=== PATIENT | female | born 1970 | race Caucasian/White ===

== ENCOUNTER 2023-03-29 23:37 | Inpatient (IN) | payer SELFPAY ==
[2023-03-30 01:42] LABS: #Monocytes 0.6 thou/uL (0.11-0.59); #Neutrophils 16.4 thou/uL (1.40-6.50); %Basophils 0.2 % (0.0-1.0); %Lymphocytes 12.5 % (21.0-51.0); %Monocytes 3.1 % (0.0-10.0); %Neutrophils 83.9 % (42.0-75.0); Hematocrit 42.6 % (36.0-47.0); Hemoglobin 14.1 g/dL (12.0-16.0); Mean Corpuscular HGB CONC 33.1 g/dL (32.0-36.0); Mean Corpuscular Hemoglobin 28.8 pg (27.0-31.0); Mean Corpuscular Volume 86.9 fl (78.0-98.0); Mean Platelet Volume 8.5 fL (7.4-10.4); Platelet Count 504 10x3/uL (130-400); RBC Distribution Width 15.8 % (11.5-14.5); White Blood Cell (WBC) Count 19.5 10x3/uL (4.8-10.8)
[2023-03-30 02:10] LABS: Prothrombin Time 13.7 sec (12.0-14.7)
[2023-03-30 02:11] LABS: PTT 79.5 sec (22.9-36.1)
[2023-03-30 02:17] LABS: Troponin I 0.018 ng/mL (< 0.028)
[2023-03-30 02:21] LABS: Albumin 4.1 g/dL (3.5-5.0)
[2023-03-30 02:22] LABS: Calcium 9.4 mg/dL (7.8-10.44); Chloride 106 mmol/L (98-107); Potassium 4.5 mmol/L (3.5-5.1); Sodium 139 mmol/L (136-145)
[2023-03-30 02:23] LABS: Glucose 143 mg/dL (70-105)
[2023-03-30 02:24] LABS: Globulin 2.4 g/dL (2.4-3.5); Protein, Total 6.5 g/dL (6.0-8.3)
[2023-03-30 02:25] LABS: Anion Gap 17 mmol/L (10-20); Bilirubin, Total 0.2 mg/dL (0.2-1.2); Carbon Dioxide 21 mmol/L (22-29)
[2023-03-30 02:26] LABS: Alkaline Phosphatase 85 U/L (40-110); Calc. Creatinine Clearance 0 mL/min (70-130); Estimated GFR 92
[2023-03-30 02:27] LABS: BUN (Urea Nitrogen) 14 mg/dL (9.8-20.1)
[2023-03-30 02:28] LABS: AST (SGOT) 15 U/L (5-34)
[2023-03-30 02:29] LABS: ALT (SGPT) 20 U/L (8-55); Lipase 92 U/L (8-78); Magnesium 1.6 mg/dL (1.6-2.6)
[2023-03-30] MEDS ORDERED: Ondansetron PF 4 MG/2 ML Vial IVP PRN (04:58)
[2023-03-30] MEDS ORDERED: Ondansetron PF 4 MG/2 ML Vial ONE (05:00)
[2023-03-30] MEDS ORDERED: Sodium Chloride 0.9% 1,000 ML IV SCH ×2 (05:00→05:45)
[2023-03-30] MEDS ORDERED: hydrALAZINE 20 MG/ML VIAL SLOW IVP PRN (05:00)
[2023-03-30] MEDS ORDERED: Labetalol HCl 100 MG/20 ML VIAL SLOW IVP PRN (05:00)
[2023-03-30 05:13] LABS: #Monocytes 1.1 thou/uL (0.11-0.59); #Neutrophils 15.1 thou/uL (1.40-6.50); %Basophils 0.2 % (0.0-1.0); %Lymphocytes 17.9 % (21.0-51.0); %Monocytes 5.6 % (0.0-10.0); %Neutrophils 75.8 % (42.0-75.0); Hematocrit 45.4 % (36.0-47.0); Hemoglobin 14.8 g/dL (12.0-16.0); Mean Corpuscular HGB CONC 32.6 g/dL (32.0-36.0); Mean Corpuscular Hemoglobin 28.7 pg (27.0-31.0); Mean Platelet Volume 8.5 fL (7.4-10.4); Platelet Count 542 10x3/uL (130-400); RBC Distribution Width 15.9 % (11.5-14.5); Red Blood Cell (RBC) Count 5.16 mill/uL (4.20-5.40); White Blood Cell (WBC) Count 19.9 10x3/uL (4.8-10.8)
[2023-03-30 05:25] LABS: Lactic Acid 3.5 mmol/L (0.5-2.2)
[2023-03-30 05:28] LABS: Hemoglobin A1c 5.5 % (4.0-6.0)
[2023-03-30 05:30] LABS: Anion Gap 14 mmol/L (10-20); BUN (Urea Nitrogen) 14 mg/dL (9.8-20.1); Calc. Creatinine Clearance 0 mL/min (70-130); Calcium 9.8 mg/dL (7.8-10.44); Carbon Dioxide 23 mmol/L (22-29); Cardiac Risk 5.5 (Less than 4.5); Chloride 106 mmol/L (98-107); Cholesterol 232 mg/dl (< 200 Desired); Estimated GFR 95; Glucose 140 mg/dL (70-105); HDL Cholesterol 42 mg/dL (>60 Neg Risk); LDL Cholesterol, Calculated 144 mg/dL; Lipase 66 U/L (8-78); Potassium 3.8 mmol/L (3.5-5.1); Sodium 139 mmol/L (136-145); Triglycerides 231 mg/dL (Less than 150)
[2023-03-30] MEDS ORDERED: Piperacillin/Tazobactam 3.375 GM in Sodium Chloride 0.9% 100 ML IVPB SCH (05:30)
[2023-03-30] MEDS ORDERED: Vancomycin (BATCH) 1.75 GM in Premix 1 BAG IVPB SCH (06:00)
[2023-03-30 06:11] VITALS: BMI 28.2
[2023-03-30] MEDS ORDERED: Piperacillin/Tazobactam 3.375 GM VIAL ONE ×4 (06:13→11:52)
[2023-03-30] MEDS ORDERED: Heparin 10,000 UNITS/ 10 ML VIAL SLOW IVP SCH (08:15)
[2023-03-30 09:15] LABS: Lactic Acid 1.5 mmol/L (0.5-2.2)
[2023-03-30] MEDS ORDERED: Aspirin 81 mg Enteric Coated Tablet ONE (11:16)
[2023-03-30] MEDS: Aspirin 81 mg Enteric Coated Tablet PO SCH (11:56)
[2023-03-30] MEDS: Piperacillin/Tazobactam 3.375 GM in Sodium Chloride 0.9% 100 ML IVPB SCH ×2 (11:56→18:25)
[2023-03-30] MEDS ORDERED: Potassium Bicarbonate/Cit Ac 20 MEQ TAB ONE (13:54)
[2023-03-30] MEDS ORDERED: Heparin 25,000 units/D5W 500 ML ONE (14:46)
[2023-03-30] MEDS ORDERED: Vancomycin (BATCH) 1.25 GM in Premix 1 BAG IVPB SCH (18:00)
[2023-03-30] MEDS: Acetaminophen 325 MG TAB PO PRN (18:26)
[2023-03-30 19:27] LABS: PTT 136.2 sec (22.9-36.1)
[2023-03-30] MEDS ORDERED: Atorvastatin Calcium 40 MG TAB PO SCH (21:00)
[2023-03-30] MEDS: Vancomycin (BATCH) 1.25 GM in Premix 1 BAG IVPB SCH (22:04)
[2023-03-31] MEDS: Piperacillin/Tazobactam 3.375 GM in Sodium Chloride 0.9% 100 ML IVPB SCH ×3 (02:14→17:37)
[2023-03-31 05:14] LABS: #Basophils 0.1 thou/uL (0.0-0.2); #Eosinphils 0.1 thou/uL (0.0-0.7); #Monocytes 1.5 thou/uL (0.11-0.59); #Neutrophils 7.7 thou/uL (1.40-6.50); %Basophils 0.5 % (0.0-1.0); %Eosinophils 0.4 % (0.0-10.0); %Lymphocytes 38.1 % (21.0-51.0); %Monocytes 10.1 % (0.0-10.0); %Neutrophils 50.8 % (42.0-75.0); Hematocrit 37.5 % (36.0-47.0); Hemoglobin 12.3 g/dL (12.0-16.0); Mean Corpuscular HGB CONC 32.8 g/dL (32.0-36.0); Mean Corpuscular Hemoglobin 28.3 pg (27.0-31.0); Mean Corpuscular Volume 86.4 fl (78.0-98.0); Mean Platelet Volume 8.9 fL (7.4-10.4); Platelet Count 446 10x3/uL (130-400); RBC Distribution Width 16.1 % (11.5-14.5); Red Blood Cell (RBC) Count 4.34 mill/uL (4.20-5.40); White Blood Cell (WBC) Count 15.2 10x3/uL (4.8-10.8)
[2023-03-31 05:41] LABS: Anion Gap 14 mmol/L (10-20); BUN (Urea Nitrogen) 9 mg/dL (9.8-20.1); Calc. Creatinine Clearance 119 mL/min (70-130); Calcium 9.3 mg/dL (7.8-10.44); Carbon Dioxide 22 mmol/L (22-29); Chloride 108 mmol/L (98-107); Estimated GFR 105; Glucose 101 mg/dL (70-105); Potassium 3.5 mmol/L (3.5-5.1); Sodium 140 mmol/L (136-145)
[2023-03-31] MEDS: Aspirin 81 mg Enteric Coated Tablet PO SCH (08:34)
[2023-03-31] MEDS: Acetaminophen 325 MG TAB PO PRN ×2 (08:34→17:36)
[2023-03-31] MEDS: Heparin 25,000 units/D5W 500 ML IVPB SCH ×2 (08:35→23:30)
[2023-03-31] MEDS: Vancomycin (BATCH) 1.25 GM in Premix 1 BAG IVPB SCH ×2 (10:27→22:01)
[2023-03-31] MEDS: Atorvastatin Calcium 40 MG TAB PO SCH (20:43)
[2023-04-01] MEDS: Piperacillin/Tazobactam 3.375 GM in Sodium Chloride 0.9% 100 ML IVPB SCH ×3 (02:32→18:40)
[2023-04-01] MEDS: Acetaminophen 325 MG TAB PO PRN (02:37)
[2023-04-01 05:00] LABS: #Basophils 0.1 thou/uL (0.0-0.2); #Eosinphils 0.1 thou/uL (0.0-0.7); #Monocytes 1.5 thou/uL (0.11-0.59); #Neutrophils 6.6 thou/uL (1.40-6.50); %Basophils 0.5 % (0.0-1.0); %Eosinophils 0.8 % (0.0-10.0); %Lymphocytes 36.7 % (21.0-51.0); %Monocytes 11.1 % (0.0-10.0); %Neutrophils 50.7 % (42.0-75.0); Hemoglobin 12.1 g/dL (12.0-16.0); Mean Corpuscular HGB CONC 32.7 g/dL (32.0-36.0); Mean Corpuscular Hemoglobin 28.5 pg (27.0-31.0); Mean Corpuscular Volume 87.1 fl (78.0-98.0); Mean Platelet Volume 8.9 fL (7.4-10.4); Platelet Count 404 10x3/uL (130-400); RBC Distribution Width 15.8 % (11.5-14.5); Red Blood Cell (RBC) Count 4.25 mill/uL (4.20-5.40)
[2023-04-01 05:30] LABS: Anion Gap 12 mmol/L (10-20); BUN (Urea Nitrogen) 5 mg/dL (9.8-20.1); Calc. Creatinine Clearance 116 mL/min (70-130); Carbon Dioxide 22 mmol/L (22-29); Chloride 108 mmol/L (98-107); Estimated GFR 101; Glucose 102 mg/dL (70-105); Potassium 3.4 mmol/L (3.5-5.1); Sodium 139 mmol/L (136-145)
[2023-04-01] MEDS: Vancomycin (BATCH) 1.25 GM in Premix 1 BAG IVPB SCH ×3 (06:24→21:30)
[2023-04-01] MEDS ORDERED: Lidocaine 1% MPF 2 ML VIAL ONE (07:39)
[2023-04-01] MEDS ORDERED: Protamine Sulfate 50 MG/5 ML VIAL ONE (07:40)
[2023-04-01] MEDS ORDERED: Dexamethasone 4 mg/ml Vial ONE (07:40)
[2023-04-01] MEDS ORDERED: Heparin 5,000 UNITS/ML VIAL ONE (07:40)
[2023-04-01] MEDS ORDERED: EPINEPHrine 1 MG/ML AMP ONE (07:40)
[2023-04-01] MEDS ORDERED: Bupivacaine PF 0.5% 30 ML VIAL ONE (07:40)
[2023-04-01] MEDS ORDERED: fentaNYL PF 100 MCG/2 ML SYRINGE ONE (07:48)
[2023-04-01] MEDS ORDERED: Midazolam HCl 2 mg/2 ml Vial ONE (08:06)
[2023-04-01] MEDS ORDERED: Glycopyrrolate 0.2 MG/ML 5 ML SYRINGE ONE (08:30)
[2023-04-01] MEDS ORDERED: Ondansetron PF 4 MG/2 ML Vial ONE (08:30)
[2023-04-01] MEDS ORDERED: Lidocaine 1% PF 5 ML VIAL ONE (08:30)
[2023-04-01] MEDS ORDERED: NEOSTIGMINE 3 MG/3 ML SYR 3 MG/3 ML SYRINGE ONE (08:30)
[2023-04-01] MEDS ORDERED: PROPOFOL 200 MG/20 ML VIAL ONE (08:30)
[2023-04-01] MEDS ORDERED: Rocuronium Bromide 10 MG/ML (10ML VIAL) ONE (08:30)
[2023-04-01] MEDS ORDERED: Potassium Chloride 20 MEQ TAB PO SCH (09:00)
[2023-04-01] MEDS ORDERED: Nitroglycerin 50 MG/250 ML BOT 250 ML IVPB PRN (09:40)
[2023-04-01] MEDS ORDERED: Phenylephrine 40 MG in Sodium Chloride 0.9% 250 ML 250 ML IVPB PRN (09:40)
[2023-04-01] MEDS ORDERED: Ondansetron PF 4 MG/2 ML Vial IVP PRN (09:40)
[2023-04-01] MEDS ORDERED: Acetaminophen 325 MG TAB PO PRN (09:40)
[2023-04-01] MEDS ORDERED: Ipratropium/Albuterol 3 ML NEB NEB PRN (09:40)
[2023-04-01] MEDS ORDERED: traMADol HCl 50 MG TAB PO PRN ×2 (09:40)
[2023-04-01] MEDS ORDERED: fentaNYL 50 mcg/mL 1 mL Vial SLOW IVP PRN ×2 (09:40)
[2023-04-01] MEDS ORDERED: Nitroglycerin 50 MG/250 ML BOT 250 ML ONE (09:59)
[2023-04-01] MEDS ORDERED: Meperidine HCl/PF 25 MG/ML VIAL ONE (10:03)
[2023-04-01] MEDS: Aspirin 81 mg Enteric Coated Tablet PO SCH (11:30)
[2023-04-01] MEDS: Sodium Chloride 0.9% 1,000 ML IV SCH ×2 (11:30→21:29)
[2023-04-01] MEDS: Magnesium Oxide 400 MG TAB PO SCH (11:30)
[2023-04-01] MEDS: Ipratropium/Albuterol 3 ML NEB NEB SCH ×3 (13:14→22:01)
[2023-04-01] MEDS: Atorvastatin Calcium 40 MG TAB PO SCH (20:05)
[2023-04-01 21:35] LABS: Vancomycin, Trough 29.9 ug/mL
[2023-04-01] MEDS ORDERED: Vancomycin (BATCH) 1.25 GM in Premix 1 BAG IVPB SCH (22:00)
[2023-04-02] MEDS: Piperacillin/Tazobactam 3.375 GM in Sodium Chloride 0.9% 100 ML IVPB SCH ×3 (02:32→17:14)
[2023-04-02] MEDS: Sodium Chloride 0.9% 1,000 ML IV SCH (03:28)
[2023-04-02 05:22] LABS: #Monocytes 2.3 thou/uL (0.11-0.59); #Neutrophils 11.8 thou/uL (1.40-6.50); %Basophils 0.2 % (0.0-1.0); %Lymphocytes 19.8 % (21.0-51.0); %Monocytes 12.9 % (0.0-10.0); %Neutrophils 66.6 % (42.0-75.0); Hematocrit 35.2 % (36.0-47.0); Hemoglobin 11.6 g/dL (12.0-16.0); Mean Corpuscular Hemoglobin 28.5 pg (27.0-31.0); Mean Corpuscular Volume 86.5 fl (78.0-98.0); Mean Platelet Volume 9.4 fL (7.4-10.4); Platelet Count 412 10x3/uL (130-400); RBC Distribution Width 15.7 % (11.5-14.5); Red Blood Cell (RBC) Count 4.07 mill/uL (4.20-5.40); White Blood Cell (WBC) Count 17.7 10x3/uL (4.8-10.8)
[2023-04-02 05:52] LABS: Anion Gap 14 mmol/L (10-20); BUN (Urea Nitrogen) 8 mg/dL (9.8-20.1); Calc. Creatinine Clearance 98 mL/min (70-130); Calcium 9.7 mg/dL (7.8-10.44); Carbon Dioxide 23 mmol/L (22-29); Chloride 106 mmol/L (98-107); Estimated GFR 84; Glucose 105 mg/dL (70-105); Potassium 3.5 mmol/L (3.5-5.1); Sodium 139 mmol/L (136-145)
[2023-04-02] MEDS: Ipratropium/Albuterol 3 ML NEB NEB SCH ×3 (06:25→18:19)
[2023-04-02] MEDS: Aspirin 81 mg Enteric Coated Tablet PO SCH (07:34)
[2023-04-02] MEDS: Clopidogrel Bisulfate 75 MG TAB PO SCH (07:34)
[2023-04-02] MEDS: Magnesium Oxide 400 MG TAB PO SCH (07:35)
[2023-04-02] MEDS: Metoprolol Tartrate 25 MG TAB PO SCH ×2 (07:35→20:21)
[2023-04-02] MEDS ORDERED: FLU VACC QS2023-24(6MOS UP)/PF 60 MCG/0.5 ML SYRINGE IM ONE (09:00)
[2023-04-02] MEDS ORDERED: Potassium Chloride 20 MEQ TAB PO SCH (10:15)
[2023-04-02 10:59] LABS: Vancomycin, Random 14.3 ug/mL (See Comment)
[2023-04-02] MEDS: Vancomycin 1 GM in Premix 1 BAG IVPB SCH (14:00)
[2023-04-02 17:30] LABS: Magnesium 1.8 mg/dL (1.6-2.6)
[2023-04-02] MEDS: Atorvastatin Calcium 40 MG TAB PO SCH (20:20)
[2023-04-02] MEDS: guaiFENesin ER 600 MG TAB PO PRN (20:56)
[2023-04-03] MEDS: Vancomycin 1 GM in Premix 1 BAG IVPB SCH ×2 (00:48→11:06)
[2023-04-03] MEDS: Piperacillin/Tazobactam 3.375 GM in Sodium Chloride 0.9% 100 ML IVPB SCH ×3 (02:45→17:44)
[2023-04-03 04:12] LABS: #Basophils 0.1 thou/uL (0.0-0.2); #Eosinphils 0.1 thou/uL (0.0-0.7); #Monocytes 1.7 thou/uL (0.11-0.59); #Neutrophils 10.9 thou/uL (1.40-6.50); %Basophils 0.3 % (0.0-1.0); %Eosinophils 0.7 % (0.0-10.0); %Lymphocytes 20.3 % (21.0-51.0); %Monocytes 10.5 % (0.0-10.0); %Neutrophils 67.9 % (42.0-75.0); Hematocrit 36.5 % (36.0-47.0); Mean Corpuscular HGB CONC 32.9 g/dL (32.0-36.0); Mean Corpuscular Hemoglobin 28.2 pg (27.0-31.0); Mean Corpuscular Volume 85.7 fl (78.0-98.0); Mean Platelet Volume 9.1 fL (7.4-10.4); Platelet Count 416 10x3/uL (130-400); RBC Distribution Width 15.4 % (11.5-14.5); Red Blood Cell (RBC) Count 4.26 mill/uL (4.20-5.40)
[2023-04-03 04:34] LABS: Anion Gap 12 mmol/L (10-20); BUN (Urea Nitrogen) 9 mg/dL (9.8-20.1); Calc. Creatinine Clearance 95 mL/min (70-130); Calcium 9.8 mg/dL (7.8-10.44); Carbon Dioxide 23 mmol/L (22-29); Chloride 105 mmol/L (98-107); Estimated GFR 81; Glucose 98 mg/dL (70-105); Potassium 3.6 mmol/L (3.5-5.1); Sodium 136 mmol/L (136-145)
[2023-04-03] MEDS: Aspirin 81 mg Enteric Coated Tablet PO SCH (08:55)
[2023-04-03] MEDS: Clopidogrel Bisulfate 75 MG TAB PO SCH (08:55)
[2023-04-03] MEDS: Metoprolol Tartrate 25 MG TAB PO SCH ×2 (08:55→20:39)
[2023-04-03] MEDS: Magnesium Oxide 400 MG TAB PO SCH (08:55)
[2023-04-03] MEDS: guaiFENesin ER 600 MG TAB PO PRN (09:38)
[2023-04-03] MEDS ORDERED: FLUoxetine HCl 20 MG CAP PO SCH (10:20)
[2023-04-03] MEDS ORDERED: Amlodipine 5 MG TAB PO SCH (10:21)
[2023-04-03 11:47] LABS: Vancomycin, Trough 8.6 ug/mL
[2023-04-03] MEDS: Atorvastatin Calcium 40 MG TAB PO SCH (20:38)
[2023-04-04] MEDS: Vancomycin 1 GM in Premix 1 BAG IVPB SCH ×2 (00:38→18:44)
[2023-04-04] MEDS: Piperacillin/Tazobactam 3.375 GM in Sodium Chloride 0.9% 100 ML IVPB SCH ×2 (02:17→10:20)
[2023-04-04 03:59] LABS: #Basophils 0.1 thou/uL (0.0-0.2); #Eosinphils 0.1 thou/uL (0.0-0.7); #Monocytes 1.6 thou/uL (0.11-0.59); #Neutrophils 9.5 thou/uL (1.40-6.50); %Basophils 0.4 % (0.0-1.0); %Eosinophils 0.9 % (0.0-10.0); %Lymphocytes 19.6 % (21.0-51.0); %Monocytes 11.6 % (0.0-10.0); %Neutrophils 67.2 % (42.0-75.0); Hematocrit 35.5 % (36.0-47.0); Hemoglobin 11.8 g/dL (12.0-16.0); Mean Corpuscular HGB CONC 33.2 g/dL (32.0-36.0); Mean Corpuscular Hemoglobin 28.6 pg (27.0-31.0); Mean Corpuscular Volume 86.2 fl (78.0-98.0); Mean Platelet Volume 9.1 fL (7.4-10.4); Platelet Count 446 10x3/uL (130-400); RBC Distribution Width 15.1 % (11.5-14.5); Red Blood Cell (RBC) Count 4.12 mill/uL (4.20-5.40); White Blood Cell (WBC) Count 14.2 10x3/uL (4.8-10.8)
[2023-04-04 04:22] LABS: Anion Gap 11 mmol/L (10-20); BUN (Urea Nitrogen) 10 mg/dL (9.8-20.1); Calc. Creatinine Clearance 95 mL/min (70-130); Calcium 9.4 mg/dL (7.8-10.44); Carbon Dioxide 24 mmol/L (22-29); Chloride 101 mmol/L (98-107); Estimated GFR 83; Glucose 104 mg/dL (70-105); Potassium 3.2 mmol/L (3.5-5.1); Sodium 133 mmol/L (136-145)
[2023-04-04] MEDS: Metoprolol Tartrate 25 MG TAB PO SCH (08:33)
[2023-04-04] MEDS: Clopidogrel Bisulfate 75 MG TAB PO SCH (08:33)
[2023-04-04] MEDS: Aspirin 81 mg Enteric Coated Tablet PO SCH (08:33)
[2023-04-04] MEDS: Magnesium Oxide 400 MG TAB PO SCH (08:34)
[2023-04-04 08:40] VITALS: BP 147/94
[2023-04-04] MEDS ORDERED: Amlodipine 5 MG TAB PO SCH (09:00)
[2023-04-04] MEDS ORDERED: FLUoxetine HCl 20 MG CAP PO SCH (09:00)
[2023-04-04] MEDS ORDERED: Potassium Chloride 20 MEQ TAB PO SCH (10:15)
[2023-04-04 16:05] VITALS: TEMP 99.1
[2023-04-05] MEDS ORDERED: Magnesium Oxide 400 MG TAB PO SCH (09:00)
== END 2023-04-04 17:03 | disposition home or self-care (01) | DRG 37 ==
LOC: ERS 23:37 → ERHOLD 03-30 02:03 → 2SE 03-30 15:49 → CCU 04-01 09:55
PROVIDERS: ADMIT Internal Medicine; ATTEND Internal Medicine
PROC: 4A00X4Z Measurement of Central Nervous Electrical Activity, External Approach (ICD-10-PCS; principal; 2023-03-31)
PROC: 03CJ0ZZ Extirpation of Matter from Left Common Carotid Artery, Open Approach (ICD-10-PCS; 2023-04-01)
DX: I63.132 Cerebral infarction due to embolism of left carotid artery (principal); G93.41 Metabolic encephalopathy; I50.30 Unspecified diastolic (congestive) heart failure; D72.829 Elevated white blood cell count, unspecified; Z79.899 Other long term (current) drug therapy; Z79.82 Long term (current) use of aspirin; E78.5 Hyperlipidemia, unspecified; E87.6 Hypokalemia
CPT/HCPCS: 36415; 70551; 71045; 80048; 80053; 80061; 80202; 83036; 83605; 83690; 83735; 84484; 85025; 85610; 85730; 87040; 88184; 88304; 88307; 88341; 88342; 93005; 93306; 94640; 95712; 95819; 95957; 96365; 96366; J0171; J0360; J1100; J1642; J1644; J2175; J2250; J2405; J2543; J2704; J2720; J3010; J3370; J3370-JW; J3490; J7050; J7620; S0020